=== PATIENT | female | born 1990 | race Caucasian/White ===

== ENCOUNTER 2017-09-10 22:54 | Emergency (ER) | payer OTHER ==
[~2017-09-10] VITALS: Ht 158.8 cm; Wt 57.3 kg
[2017-09-10 22:58] VITALS: TEMP 36.9; Ht 158.8 cm; Wt 57.3 kg
[2017-09-10 23:37] LABS: URINE APPEARANCE CLEAR (CLEAR); URINE BILIRUBIN NEG (NEG); URINE COLOR YELLOW; URINE EPITHELIAL CELL AUTO >30 /lpf (0-5); URINE NITRITE NEG (NEG); URINE PH >= 9.0 (4.5-7.5); URINE SPECIFIC GRAVITY 1.014 (1.000-1.030); UROBILINOGEN NEG (NEG)
[2017-09-10 23:38] LABS: MANUAL MICROSCOPIC REQUIRED? NO; REVIEW REQ? NO
[2017-09-10] MEDS ORDERED: FLUO20CA35 PO (23:43)
[2017-09-10] MEDS ORDERED: BUPR-83 PO (23:44)
[2017-09-10] MEDS ORDERED: ZOLP5TAB PO (23:44)
[2017-09-10 23:53] LABS: BENZODIAZEPINE, URINE NEG (NEG); COCAINE,URINE NEG (NEG); PHENCYCLIDINE, URINE NEG (NEG)
[2017-09-11 00:06] LABS: BASO % 0.2 %; BASO ABS # 0.02 K/uL (0-0.2); COMPLETE YES; EOS % 4.6 %; HEMATOCRIT 38.4 % (37-47); IG% 0.4 %; LYMPH % 31.8 %; LYMPH ABS # 3.16 K/uL (1.2-3.4); MEAN CELL VOLUME 88.3 fL (80-100); MEAN CORPUSCULAR HEMOGLOBIN 30.3 pg (25-34); MEAN CORPUSCULAR HGB CONC 34.4 g/dl (32-36); MEAN PLATELET VOLUME 9.4 fL (7.4-10.4); MONO % 8.6 %; NEUT % 54.4 %; PLATELET COUNT 222 K/uL (130-400); RED BLOOD COUNT 4.35 M/uL (4.2-5.4); WHITE BLOOD COUNT 9.93 K/uL (4.8-10.8)
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
[2017-09-11 00:25] LABS: ALT/SGPT 20 U/L (12-78); AST/SGOT 9 U/L (15-37); BLOOD UREA NITROGEN 14 mg/dl (7-18); BUN/CREATININE RATIO 18.6 (10-20); CALCIUM 8.6 mg/dl (8.5-10.1); CARBON DIOXIDE 26 mmol/L (21-32); CHLORIDE 103 mmol/L (98-107); CREATININE 0.77 mg/dl (0.60-1.20); GLUCOSE 93 mg/dl (70-99); POTASSIUM 3.3 mmol/L (3.5-5.1); SODIUM 136 mmol/L (136-145)
[2017-09-11 00:35] LABS: ALKALINE PHOSPHATASE 40 U/L (45-117); THYROID STIMULATING HORMONE 0.094 uIu/ml (0.300-4.500)
[2017-09-11 00:55] VITALS: BP 112/64; PULSE 90; O2SAT 98
== END 2017-09-11 04:20 ==
LOC: C.EDB 22:56 → C.EDA 09-11 04:20
DX: O99.341 Other mental disorders complicating pregnancy, first trimester (principal); Z3A.08 8 weeks gestation of pregnancy; F39 Unspecified mood [affective] disorder; R45.850 Homicidal ideations; R45.851 Suicidal ideations; R44.1 Visual hallucinations; F41.9 Anxiety disorder, unspecified; O99.89 Other specified diseases and conditions complicating pregnancy, childbirth and the puerperium; J40 Bronchitis, not specified as acute or chronic; E04.2 Nontoxic multinodular goiter; Z87.891 Personal history of nicotine dependence; Z79.899 Other long term (current) drug therapy